=== PATIENT | male | born 1955 | race Two or more races ===

== ENCOUNTER 2016-11-29 06:16 | Day surgery (SDC) | payer OTHER ==
--- NOTE | 2016-11-28 09:28 | HP ---
DATE OF CLINIC: 11/24/16 JOSEPH AUGUSTE. : 1955 PLANNED PROCEDURE: Left 5th Metacarpal Closed Reduction and Percutaneous Pinning DATE OF SURGERY: November 29, 2016 SURGEON: Levi Pascal M.D. REASON FOR VISIT New patient here today for his Left 5th metacarpal fracture. DOI:11/17/16 on the job. X-rays were taken 11/17/16 images for review. He was initially seen at [facility]. 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 HISTORY OF PRESENT ILLNESS Joseph Auguste is a 61 year old male. * Medication list reviewed with patient allergy list reviewed with patient. 61-year-old male with about a week history of left hand pain after he was cutting a branch that bounced up and hit him in the hand causing pain over the lateral side of his hand, or ulnar side of his hand. He was seen, xrays were obtained which documented a metacarpal fracture of his 5th metacarpal near the junction of the diaphysis and metaphysis. He was placed into a splint and sent here for f/u. He is seeing Nury Mckeon for his Workman's Comp attending. He is complaining of no pain in the splint today and says it actually doesn't hurt that much, but he does note that the finger tends to scissor underneath the others a little bit. No other extremity complaints at this time. No previous injuries at this site. Past medical and surgical history are as documented. He has a history of sleep apnea and asthma and some questions of hypothyroid. CURRENT MEDICATION * *DME Miscellaneous sling NIKKI 99ICD s62.321B, 30 days, 0 refills * Animi-3/Vitamin D 1 MG Capsule 0 days, 0 refills * Cefuroxime Axetil 500 MG Tablet 1 by mouth twice a day for 10 days, 10 days, 0 refills * Ibuprofen 600 MG Tablet 1 by mouth three times a day with food, 30 days, 0 refills * levothyroxine 0.15 mg Tablet 0 days, 0 refills * Montelukast Sodium Powder 0 days, 0 refills * Spiriva HandiHaler 18 MCG Capsule 0 days, 0 refills * Testosterone Cypionate 100 MG/ML Solution 0 days, 0 refills PAST MEDICAL/SURGICAL HISTORY Reported: Medical: Renal history Stones and Asthma. Surgical / Procedural: Prior surgery Circumcision Vasectomy [place] teeth removal and Hernia repair. SOCIAL HISTORY Behavioral: Not chewing tobacco. Quit smoking in the 80's. Smoking status: Former smoker. Alcohol: Alcohol one or two a week. Drug Use: Not using drugs. 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 ALLERGIES * No Known Allergies No reaction to anesthetics. FAMILY HISTORY 2 children living Family medical history Mother- Rheumatoid Arthritis Sister- Cancer REVIEW OF SYSTEMS No recent constitutional symptoms to include fevers and chills. No recent cardiovascular symptoms to include chest pain or palpitations. No recent respiratory symptoms to include shortness of breath or recent infections. PHYSICAL FINDINGS * Vitals taken 11/24/2016 01:24 pm BP-Sitting R 150/96 mmHg BP Cuff Size Regular Pulse Rate-Sitting 84 bpm Pulse Rhythm Regular Temp-Oral 97.1 F Height 71.5 in Weight 207 lbs Body Mass Index 28.5 kg/m2 Body Surface Area 2.15 m2 Pain Level 0 Ears, Nose, Throat: * ENT: normal. Lungs: * Clear to auscultation. Cardiovascular: Heart Rate And Rhythm: * Normal. Abdomen: * Normal. Patient is a well-developed, well-nourished male in no acute distress. He is awake, alert and conversant throughout the encounter. CARDIOVASCULAR: Intact peripheral pulses on bilateral upper extremities. No significant edema on inspection of bilateral upper extremities. NEUROLOGIC: Patient had intact coordinated composite motion of the bilateral upper extremities and sensation intact to light touch in all distributions of bilateral upper extremities. PSYCHIATRIC: Patient was oriented to person, place and time and displayed appropriate mood and affect during the encounter. SKIN: Exam of the skin on bilateral upper extremities showed no significant scars, lesions, rashes or masses. FOCUSED MUSCULOSKELETAL EXAM: Patient has normal resting station of bilateral shoulders, elbows and wrists. After removal of his splint, his left hand has ecchymosis and swelling over the ulnar border. He has tenderness to palpation along the shaft of his 5th metacarpal with a visible and palpable prominence dorsally. When he tries to make a fist his left small finger scissors underneath both the ring and long fingers and his nail cascade is definitely showing supination of that finger relative to the others. His sensation is intact. The finger is warm and well perfused. There is no other significant injuries on the hand. TESTS * Test: CBC NO DIFF Report Date: 11/24/2016 WBC 8.3 10*3/mL MCV 88.7 fL RBC 5.14 10*6/uL MCH 30.2 pg MCHC 34.0 g/dL RDW 12.2 % PLATELET COUNT 286 10*3/mL HCT 45.6 % HGB 15.5 g/L * Test: COMPREHENSIVE METABOLIC PANEL Report Date: 11/24/2016 ALT/SGPT 51 U/L ALBUMIN 4.1 g/dL ALB/GLOB RATIO 1.4 BUN 17 mg/dL BUN/CREAT RATIO 19 CALCIUM 10.4 mg/dL High GLUCOSE 156 mg/dL High CREATININE 0.9 mg/dL SODIUM 138 meq/L POTASSIUM 4.2 meq/L CHLORIDE 103 meq/L CARBON DIOXIDE 29 meq/L ANION GAP 10 meq/L TOT PROTEIN 7.1 g/dL GLOBULIN 3.0 g/dL BILI,TOTAL 0.4 mg/dL AST/SGOT 31 U/L ALK PHOSPHATASE 55 U/L GFR 86 High IMAGING Xrays demonstrate a fracture of the distal 3rd of the diaphysis of the left small finger metacarpal with supination of the fragment relative to the remainder of his digits. No other fractures or dislocations are visualized. ASSESSMENT 61-year-old male with left small finger shaft fracture with rotational deformity that is unacceptable. THERAPY * Patient not eligible for fall risk assessment. PLAN * Disp fx of shaft of fifth metacarpal bone, left hand, init Percocet 5-325 MG TABS, Take 1-2 tablets by mouth every 4-6 hours as needed for pain, 14 days, 0 refills Left 5th metacarpal closed reduction and percutaneous pinning. Plan will be for closed reduction and percutaneous pinning to stabilize this fragment and prevent rotational deformity. Risks, benefits and alternatives were discussed with the patient and he would like to proceed with surgery. Informed consent was obtained and documented in the chart. Patient was placed on the schedule at the first available convenience. He is splinted for now and we will place him into a new splint after surgery. CARE TEAM Megan Mckeon NP Nurse Practitioner Ran Valencia MD [facility] SURGICAL CONSENT We have discussed surgical options including left 5th metacarpal fracture closed reduction and percutaneous pinning and nonoperative management. The patient was counseled in detail regarding the diagnosis, treatment options available, prognosis of each treatment option and the potential risks and complications. The risks of surgery include, but are not limited to, anesthetic , neurovascular complications, pulmonary embolism, deep vein thrombosis, wound dehiscence, failure of any or all of the discussed procedures, infection of the joint or surrounding soft tissue, need for revision surgery, chronic pain, limitations in activities of daily living, inability to return to work, and loss of normal range of motion or functional use of the extremity. There is the possibility of failure over time that may require additional operative or nonoperative treatment. The patient acknowledged that there are a number of perioperative risks not mentioned here and would still like to proceed. The patient is aware of and understands these risks, and wishes to proceed with the proposed surgical procedure and other procedures as indicated at the time of surgery. We will have the patient see their PCP for a preoperative medical risk assessment. The preoperative instructions were reviewed with the patient and all questions were answered.
[~2016-11-29 06:16] MED LIST: IV START KIT ONE; LACTATED RINGERS 1,000 ML ONE
[2016-11-29] MEDS ORDERED: FENTANYL 100 MCG/2 ML VIAL ONE (06:23)
[2016-11-29] MEDS ORDERED: MIDAZOLAM HCL 1 MG/ML 2ML VIAL ONE (06:23)
[2016-11-29] MEDS ORDERED: LIDOCAINE 2% (PRES FREE) 5 ML VIAL ONE (06:23)
[2016-11-29] MEDS ORDERED: PROPOFOL 20 ML IV ONE ×3 (06:24→08:42)
[2016-11-29] MEDS ORDERED: CEFAZOLIN SODIUM 2 GRAM PREMIX 100 ML IV ONE (06:27)
[2016-11-29] MEDS ORDERED: CEFAZOLIN SODIUM 2 GRAM PREMIX 100 ML IV PRN (06:30)
[2016-11-29] MEDS ORDERED: BUPIVACAINE 0.5% (PRES FREE) 30 ML VIAL ONE (06:44)
[2016-11-29] MEDS ORDERED: LIDOCAINE 1% (PRES FREE) 30 ML VIAL ONE (06:44)
[2016-11-29] MEDS ORDERED: LIDOCAINE 0.5% (PRES FREE) 50 ML VIAL ONE (06:45)
[2016-11-29] MEDS ORDERED: IV START KIT ONE (06:50)
[2016-11-29] MEDS ORDERED: SODIUM CHLORIDE 0.9% FLUSH 10 ML ONE (06:51)
[2016-11-29] MEDS ORDERED: SCOPOLAMINE 1.5 MG/72 HR 1 EACH PATCH TD ONE (07:30)
--- NOTE | 2016-11-29 09:02 | RAD ---
Exam: Two-view left finger COMPARISON: 11/27/2016 INDICATION: Closed reduction left finger. FINDINGS: Fluoroscopy was provided for Dr. Pascal. 1 minute 9 seconds of fluoroscopy time was utilized. 2 static images were submitted for interpretation. These images demonstrate placement of 2 percutaneous pins in the region of the fifth metacarpal, which presumably traverse the fourth and fifth metacarpal. There is improved alignment of the fracture fragments of the distal diaphyseal fracture. This examination is otherwise limited for interpretation. IMPRESSION: Fluoroscopy was provided for Dr. Pascal for closed reduction of the left fifth metacarpal fracture.
[2016-11-29] MEDS ORDERED: ONDANSETRON 4 MG/2ML 2 ML VIAL ONE (09:18)
[2016-11-29] MEDS ORDERED: DEXAMETHASONE SOD PHOS 4 MG/1 ML VIAL ONE (09:18)
--- NOTE | 2016-11-29 09:22 | PCMBPN ---
Brief Post Op Note: Date of Procedure: 11/29/16 Start Time: 0815 Preoperative Diagnosis: 1. left small finger metacarpal fracture Postoperative Diagnosis: 1. Same Procedure: left small finger metacarpal closed redution and percutaneous pinning Surgeon: Levi Pascal MD Assist: Jonah Pierce PA-C Anesthesia: Emy Ochoa Findings: as above Condition: stable to PACU Complications: none IV Fluids: 1000 mLs of LR Urine Output: 0 mLs Estimated Blood Loss: 1 mLs Tourniquet Time: 30 min at 250 mm Hg Specimens: none Implants: 2 0.062" k-wires Drains: none Levi Pascal MD
[2016-11-29] MEDS ORDERED: ACETAMINOPHEN 325 MG TABLET PO PRN (10:09)
[2016-11-29] MEDS ORDERED: HYDROMORPHONE HCL 1 MG/ML SYRINGE IV PRN (10:09)
[2016-11-29] MEDS ORDERED: ONDANSETRON 4 MG/2ML 2 ML VIAL IV PRN (10:09)
[2016-11-29] MEDS ORDERED: OXYCODONE HCL 5 MG TABLET PO PRN (10:09)
[2016-11-29] MEDS ORDERED: DIPHENHYDRAMINE HCL 50 MG/1 ML VIAL IV PRN (10:09)
[2016-11-29] MEDS ORDERED: LACTATED RINGERS 1,000 ML IV SCH (10:09)
--- NOTE | 2016-11-30 10:55 | OP ---
Robi IBRAHIM : 1955 [id number] DATE OF SERVICE: November 29, 2016 PREOPERATIVE DIAGNOSIS: Left small finger metacarpal fracture with inappropriate alignment. POSTOPERATIVE DIAGNOSIS: Left small finger metacarpal fracture with inappropriate alignment. PROCEDURE PERFORMED: LEFT SMALL FINGER CLOSED REDUCTION AND PERCUTANEOUS PINNING. SURGEON: Levi Pascal M.D. HIGH SCHOOL SOCIAL STUDIES TEACHER: Jonah Pierce P.A.-C. ANESTHESIA: Basia Ochoa C.R.N.A. SPECIMENS: No material was sent to the laboratory. ESTIMATED BLOOD LOSS: 1 mL FLUIDS REPLACED: 1,000 mL of crystalloid. TOURNIQUET TIME: 30 minutes at 250 mmHg for a Jessica block. DRAINS: No drains. INDICATIONS: This is a 61-year-old right dominant gentleman with a left small finger metacarpal fracture in a pronated and displaced position with unacceptable alignment parameters. Risks, benefits and alternatives of closed reduction percutaneous pinning were discussed with the patient and he elected to proceed with surgery. Informed consent was obtained and documented in the chart. The patient was placed on the schedule the first available convenience. DESCRIPTION OF PROCEDURE: The patient was identified in the pre-operative holding area where he was marked with an indelible marker by the operating surgeon. He was taken to the operating room and placed in a supine position on the operating room table. An operative time out was performed and confirmed by all members of the operative team. A [place] block anesthesia was administered after elevation and exsanguination of the arm and inflation of the tourniquet. The arm was prepped and draped in the usual sterile fashion for surgery. He received perioperative antibiotics prior to inflation of the tourniquet. Provisional reduction was obtained using longitudinal traction and a percutaneous stab incision to manipulate the fracture fragments. Once the reduction was obtained two K-wires were placed percutaneously across the fifth metacarpal and into the fourth metacarpal maintaining the patient's reduced position. Pins were cut off and bent. Pin covers were placed. Xeroform was placed around the pins and the patient was placed into ulnar gutter splint in safe position. The tourniquet was deflated. The drapes were removed. The patient was transferred to a stretcher and taken postoperatively to the postanesthesia care unit in stable condition. There were no observed intraoperative complications during this procedure. Job [id number] Cc: [facility]
== END 2016-11-29 10:30 | disposition home or self-care (01) ==
LOC: SDC 06:16
PROVIDERS: ATTEND Orthopaedic Surgery
PROC: 0PSQ34Z Reposition Left Metacarpal with Internal Fixation Device, Percutaneous Approach (ICD-10-PCS; principal; 2016-11-29)
DX: S62.327A Displaced fracture of shaft of fifth metacarpal bone, left hand, initial encounter for closed fracture (principal); Y99.0 Civilian activity done for income or pay; G47.30 Sleep apnea, unspecified; J45.909 Unspecified asthma, uncomplicated; E03.9 Hypothyroidism, unspecified; Z87.891 Personal history of nicotine dependence
CPT/HCPCS: 26608; 76000; 73140; J3010; J1100; A9270; J2250; J2001; J2405; J7120; J0690